=== PATIENT | female | born 1970 | race Caucasian/White ===

== ENCOUNTER 2020-10-01 18:51 | Emergency (ER) | payer OTHER ==
[2020-10-01] MEDS ORDERED: Morphine 10 MG/ML Syringe IM ONE (19:10)
--- NOTE | 2020-10-01 19:12 | EDM.PDOC ---
ED HPI GENERAL MEDICAL PROBLEM - General Chief Complaint: Lower Extremity Injury/Pain Stated Complaint: INJURY TO ANKLE Time Seen by Provider: 10/01/20 19:10 Source of Information: Reports: Patient History Limitations: Reports: No Limitations - History of Present Illness INITIAL COMMENTS - FREE TEXT/NARRATIVE: reports that she fell from a hammock and twisted her right foot - felt a pop. pain 8 out of 10. unable to put weight on it. occurred within the last hour. Onset: Sudden Duration: Hour(s): (1) Location: Reports: Lower Extremity, Right Quality: Reports: Sharp Severity: Moderate Improves with: Reports: Immobilization Worsens with: Reports: Movement - Related Data Home Meds: Home Meds Hydrocodone/Acetaminophen [Hydrocodon-Acetaminophen 5-325] 1 each PO Q6HR PRN #10 tablet 10/01/20 [Rx] Ketorolac [Toradol] 10 mg PO TID PRN #10 tab 10/01/20 [Rx] Review of Systems - Review of Systems Review Of Systems: See Below Constitutional: Reports: No Symptoms Eyes: Reports: No Symptoms Ears: Reports: No Symptoms Respiratory: Reports: No Symptoms Cardiovascular: Reports: No Symptoms GI/Abdominal: Reports: No Symptoms Genitourinary: Reports: No Symptoms ED EXAM, GENERAL - Physical Exam Exam: See Below Exam Limited By: No Limitations General Appearance: Alert, WD/WN, No Apparent Distress Eye Exam: Bilateral Eye: EOMI Respiratory/Chest: No Respiratory Distress, Lungs Clear Cardiovascular: Normal Peripheral Pulses Extremities: Limited Range of Motion, Other (right foot midly TTP, limited ROM due to pain, no deformity ) ED TRAUMA EXTREMITY PROCEDURES - Splinting Right Lower Extremity Pre-Procedure NV Status: Normal Post-Procedure NV Status: Normal Splint Material: Fiberglass Splint Design: Gutter, Posterior Applied & Form Fitted By: Provider Provider Post-Splint Application NV Check: NV Status Normal Complications: No Course - Orders/Labs/Meds Orders: Active Orders 24 hr Category Date Time Status Ankle Min 3V Rt [CR] Stat Exams 10/01/20 19:09 Taken Tibia Fibula Rt [CR] Stat Exams 10/01/20 19:09 Taken Meds: Medications Discontinued Medications Generic Name Dose Route Start Last Admin Trade Name Freq PRN Reason Stop Dose Admin Morphine Sulfate 6 mg 10/01/20 19:10 Morphine 10 Mg/Ml Syringe IM 10/01/20 19:11 ONETIME ONE - Re-Assessments/Exams Free Text/Narrative Re-Assessment/Exam: xray right ankle and tib/fib - non-displaced lateral malleolus fracture splint was placed crutches were given Departure - Departure Time of Disposition: 20:26 Disposition: Home, Self-Care 01 Condition: Good Clinical Impression: Closed low lateral malleolus fracture Qualifiers: Encounter type: initial encounter Laterality: right Qualified Code(s): S82.61XA - Displaced fracture of lateral malleolus of right fibula, initial encounter for closed fracture - Discharge Information *PRESCRIPTION DRUG MONITORING PROGRAM REVIEWED*: Not Applicable *COPY OF PRESCRIPTION DRUG MONITORING REPORT IN PATIENT TAMIA: Not Applicable Prescriptions: Hydrocodone/Acetaminophen [Hydrocodon-Acetaminophen 5-325] 1 each PO Q6HR PRN #10 tablet PRN Reason: Pain (Moderate 4-6) Ketorolac [Toradol] 10 mg PO TID PRN #10 tab PRN Reason: Pain (Moderate 4-6) Instructions: Nondisplaced Fibular Ankle Fracture Treated With Immobilization, Adult, Ankle Fracture Forms: ED Department Discharge Additional Instructions: - leg elevation - use pain meds as prescribed - follow up with your PCP in 1-2 weeks for repeat x rays - use crutches all the times - return to the ER if any concerns or worsening of symptoms - Problem List & Annotations (1) Closed low lateral malleolus fracture SNOMED Code(s): 721947395 Code(s): S82.63XA - DISP FX OF LATERAL MALLEOLUS OF UNSP FIBULA, INIT Status: Acute Priority: Low Qualifiers: Encounter type: initial encounter Laterality: right Qualified Code(s): S82.61XA - Displaced fracture of lateral malleolus of right fibula, initial encounter for closed fracture - Problem List Review Problem List Initiated/Reviewed/Updated: Yes - My Orders Last 24 Hours: My Active Orders 10/01/20 19:09 Ankle Min 3V Rt [CR] Stat Tibia Fibula Rt [CR] Stat - Assessment/Plan Last 24 Hours: My Active Orders 10/01/20 19:09 Ankle Min 3V Rt [CR] Stat Tibia Fibula Rt [CR] Stat Plan: - leg elevation - use pain meds as prescribed - follow up with your PCP in 1-2 weeks for repeat x rays - use crutches all the times - return to the ER if any concerns or worsening of symptoms
[2020-10-01] MEDS ORDERED: Acetaminophen/HYDROcodone 325-5 MG Tab ONE (21:00)
--- NOTE | 2020-10-02 07:44 | CR ---
Date of Service: 10/01/20 Clinical Data: fall RIGHT ANKLE: There is soft tissue swelling over the lateral malleolus. There is a minimally displaced oblique fracture through the distal fibular metaphysis. No other acute abnormalities. [id number] [facility]
--- NOTE | 2020-10-02 07:47 | CR ---
Date of Service: 10/01/20 Clinical Data: fall RIGHT LOWER LEG: No acute acute fracture or dislocation. No lytic or blastic bone lesions. [id number] [facility]
== END 2020-10-01 21:00 | disposition home or self-care (01) ==
LOC: LB.ED 18:51
DX: S82.64XA Nondisplaced fracture of lateral malleolus of right fibula, initial encounter for closed fracture (principal); X50.1XXA Overexertion from prolonged static or awkward postures, initial encounter
CPT/HCPCS: 29515; 73590; 73610; 96372; 99283; A9270; J2270